=== PATIENT | female | born 1940 ===

== ENCOUNTER → 2023-09-26 12:56 | Outpatient (REF) | payer MEDICARE, OTHER, SELFPAY | LOC: WOUND 12:56 | PROVIDERS: ATTENDING PHYSICIAN Surgery; FAMILY PHYSICIAN Internal Medicine | DX: L89.159 Pressure ulcer of sacral region, unspecified stage (principal); E11.69 Type 2 diabetes mellitus with other specified complication; I48.0 Paroxysmal atrial fibrillation; R26.0 Ataxic gait; F31.9 Bipolar disorder, unspecified; N18.31 Chronic kidney disease, stage 3a | CPT/HCPCS: 99203 ==